=== PATIENT | female | born 2000 | race Caucasian/White ===

== ENCOUNTER 2020-01-24 10:19 | Observation (INO) ==
[2020-01-24] MEDS ORDERED: SODIUM CHLORIDE 0.9% 1000ML 2,000 ML IV ONE (11:05)
[2020-01-24] MEDS ORDERED: ACETAMINOPHEN 1,000 MG/100 ML VIAL IV STA (11:05)
[2020-01-24 11:54] LABS: Basophils # (auto) 0.05 K/uL (0-0.2); Basophils % (auto) 0.5 %; Eosinophils # (auto) 0.16 K/uL (0-0.5); Eosinophils % (auto) 1.6 %; Hematocrit (blood only) 41.9 % (37-47); Hemoglobin 14.2 g/dL (12.0-16.0); Immature Granulocytes # (auto) 0.01 K/uL (0.00-0.02); Immature Granulocytes % (auto) 0.1 %; Lymphocytes # (auto) 2.18 K/uL (1.2-3.4); Lymphocytes % (auto) 21.2 %; Mean Corpuscular Hemoglobin 29.8 pg (25-34); Mean Corpuscular Hgb Conc 33.9 g/dL (32-36); Mean Corpuscular Volume 87.8 fL (80-100); Mean Platelet Volume 9.9 fL (7.4-10.4); Monocytes # (auto) 0.95 K/uL (0.11-0.59); Monocytes % (auto) 9.3 %; Neutrophils # (auto) 6.91 K/uL (1.4-6.5); Neutrophils % (auto) 67.3 %; Platelet Count 285 K/uL (130-400); RDW Coefficient of Variation 12.2 % (11.5-14.5); RDW Standard Deviation 38.9 fL (36.4-46.3); Red Blood Count 4.77 M/uL (4.2-5.4); White Blood Count 10.26 K/uL (4.8-10.8)
[2020-01-24] MEDS ORDERED: ONDANSETRON INJ 2 MG/ML 2 ML VIAL ONE ×2 (12:08→15:10)
[2020-01-24 12:15] LABS: Albumin Level 3.6 gm/dl (3.4-5.0); BUN Creatinine Ratio 9.4 (10-20); Calcium 9.2 mg/dl (8.5-10.1); Creatinine Clr Calc Pharmacy 131.7 ml/min; Est GFR (African American) 112.7; Est GFR (Non-African American) 97.3; Potassium 4.1 mmol/L (3.5-5.1)
[2020-01-24 12:17] LABS: Albumin Globulin Ratio 0.8 (0.9-2); Bilirubin,Total 0.3 mg/dl (0.2-1); Globulin 4.3 gm/dl (2.5-4.0); Total Protein 7.9 gm/dl (6.4-8.2)
[2020-01-24 12:19] LABS: Pregnancy Test, Serum Negative (Negative)
[2020-01-24 12:22] LABS: Appearance Urine Clear (Clear); Bacteria Urine Automated 1+ (Negative); Bilirubin Urine Negative (Negative); Blood Urine Negative (Negative); Cast Urine Automated 0 /lpf (0-5); Color Urine Yellow; Epithelial Cell Urine Auto >30 /lpf (0-5); Glucose Urine UA Negative (Negative); Ketones Urine Negative (Negative); Leukocyte Esterase Urine 2+ (Negative); Nitrite Urine Negative (Negative); Protein Urine Negative (Negative); RBC Urine Automated 0-4 /hpf (0-4); Specific Gravity Urine 1.007 (1.000-1.030); Urobilinogen Urine Negative (Negative)
[2020-01-24] MEDS ORDERED: IOVERSOL 100ml IV ONE (12:33)
--- NOTE | 2020-01-24 12:51 | CT Scan Report ---
CT SCAN OF THE ABDOMEN AND PELVIS WITH IV CONTRAST CLINICAL HISTORY: Right lower quadrant abdominal pain. COMPARISON STUDY: Abdominal radiographs dated 12/26/2018. TECHNIQUE: Following the IV administration of 93 cc of Optiray 320, CT scan of the abdomen and pelvi s is performed from the lung bases to the proximal femora. Images are reviewed in the axial, sagittal , and coronal planes. IV contrast was administered without complication. A dose lowering technique wa s utilized adhering to the principles of ALARA. CT DOSE: 865.90 mGy.cm FINDINGS: Lung bases: The heart is normal in size and without pericardial effusion. The lung bases are clear. Liver: The contrast-enhanced liver is normal in size, contour, and attenuation. There is no intrahepa tic biliary ductal dilatation. The hepatic veins and portal veins are patent. Gallbladder: Unremarkable. Spleen: Normal in size and attenuation. Pancreas: Unremarkable. Adrenal glands: Unremarkable. Kidneys: The contrast enhanced kidneys are normal in size and without hydronephrosis. The kidneys enh ance symmetrically. Abdominal vasculature: The abdominal aorta is normal in course and caliber. Bowel: There is no bowel obstruction. The appendix is distended and fluid-filled, measuring up to 10 mm in diameter as seen on image #287. The appendiceal wall is thickened and there is trace appendicea l inflammation. Findings are consistent with acute appendicitis. No organized fluid collection is see n to suggest abscess. Peritoneum: There is no intraperitoneal free air or abdominal ascites. There is a small fat-containin g umbilical hernia. A naval piercing is noted. Lymphadenopathy: None. Pelvic viscera: The bladder, uterus, and adnexa are normal as visualized noting bilateral ovarian fol licles. A small volume of free fluid is seen in the cul-de-sac. Skeletal structures: No lytic or blastic lesions are seen. IMPRESSION: 1. Findings are consistent with acute appendicitis. 2. There is no evidence of abscess or perforation. 3. A small volume of nonspecific free fluid is seen in the cul-de-sac. 4. Additional findings as above. ACT 112: Negative or not required by law. Electronically signed by: Ten Peralta M.D. 01/24/2020 12:50 PM
--- NOTE | 2020-01-24 14:07 | Emergency Department Note ---
Impression & Plan Appendicitis, Abdominal pain, RLQ, Nausea ED Provider Note NAME: DONELL LANTIGUA AGE: 19 SEX: F ARRIVES VIA: Walk-In INFORMANT: Patient ED PROVIDER(S): Prateek Farr MD CHIEF COMPLAINT: Abdominal pain, fever. PLAN: Disposition: Admit MEDICAL DECISION MAKING: The patient is a pleasant 19 y/o, previously healthy who presents to the emergency department with right lower quadrant pain and fever that evolved since Friday with generalized abdominal pain and nausea, vomiting, and diarrhea. She denies cough, chest pain, sob, urinary sx. Denies known exposures to Covid19. On arrival the patient is uncomfortable NAD, Febrile to 38.8 and otherwise VSS. She appears clinically dry. She exhibits moderate tenderness over Mcburney's point. No guarding or rebound. WBC, H/H, platelets wnl. Chemistry without acidosis. LFTs and electrolytes unremarkable. Hcg negative. UA with epitheleal cells. Ct abd/pelvis demonstrates appendicitis with fluid filled, distended appendix measuring 10 mm with periappendiceal inflammation. No abscess or perforation. Case was discussed with Dr. Gimenez, general surgery director of flight operations who will evaluate the patient for O R/admission. Findings and plan reviewed with the patient and she was agreeable. Cefoxitin ordered. Triage Nursing notes reviewed and agree them. [Prior medical records reviewed] [] Vital Signs: reviewed and remarkable for [no significant abnormalities] Differential diagnosis: Appendicitis, ovarian cyst, ovarian torsion, ectopic , TOA, PID, infections, diverticulitis, UTI, obstruction, mesenteric ischemia, aortic pathology, inflammatory bowel disease, renal colic, PUD, pancreatitis, biliary pathology, hernia, volvulus, constipation, as well as other pathologies. ER treatment provided: See below. Diagnostics interpreted by me: Cardiac Monitoring: An order for continuous cardiac monitoring was placed and demonstrated NSR, 89 bpm, no ectopy. Laboratory studies: [See below] [] Imaging studies: CT SCAN OF THE ABDOMEN AND PELVIS WITH IV CONTRAST CLINICAL HISTORY: Right lower quadrant abdominal pain. COMPARISON STUDY: Abdominal radiographs dated 12/26/2018. TECHNIQUE: Following the IV administration of 93 cc of Optiray 320, CT scan of the abdomen and pelvis is performed from the lung bases to the proximal femora. Images are reviewed in the axial, sagittal, and coronal planes. IV contrast was administered without complication. A dose lowering technique was utilized adhering to the principles of ALARA. CT DOSE: 865.90 mGy.cm FINDINGS: Lung bases: The heart is normal in size and without pericardial effusion. The lung bases are clear. Liver: The contrast-enhanced liver is normal in size, contour, and attenuation. There is no intrahepatic biliary ductal dilatation. The hepatic veins and portal veins are patent. Gallbladder: Unremarkable. Spleen: Normal in size and attenuation. Pancreas: Unremarkable. Adrenal glands: Unremarkable. Kidneys: The contrast enhanced kidneys are normal in size and without hydronephrosis. The kidneys enhance symmetrically. Abdominal vasculature: The abdominal aorta is normal in course and caliber. Bowel: There is no bowel obstruction. The appendix is distended and fluid- filled, measuring up to 10 mm in diameter as seen on image #287. The appendiceal wall is thickened and there is trace appendiceal inflammation. Findings are consistent with acute appendicitis. No organized fluid collection is seen to suggest abscess. Peritoneum: There is no intraperitoneal free air or abdominal ascites. There is a small fat-containing umbilical hernia. A naval piercing is noted. Lymphadenopathy: None. Pelvic viscera: The bladder, uterus, and adnexa are normal as visualized noting bilateral ovarian follicles. A small volume of free fluid is seen in the cul-de-sac. Skeletal structures: No lytic or blastic lesions are seen. IMPRESSION: 1. Findings are consistent with acute appendicitis. 2. There is no evidence of abscess or perforation. 3. A small volume of nonspecific free fluid is seen in the cul-de-sac. 4. Additional findings as above. Consultation(s): Dr. Gimenez, General surgery on-call. HPI: The patient is a pleasant 19 y/o, previously healthy who presents to the emergency department with right lower quadrant pain and fever that evolved since Friday with generalized abdominal pain and nausea, vomiting, and diarrhea. She denies cough, chest pain, sob, urinary sx. Denies known exposures to Covid19. ROS: See above HPI for pertinent positives & negatives. A total of [10] systems reviewed and were otherwise negative. PAST MEDICAL HISTORY:[See Below] PAST SURGICAL HISTORY:[See Below] FAMILY HISTORY:[See Below] SOCIAL HISTORY:[See Below] HOME MEDICATIONS:[See Below] ALLERGIES:[See Below] VITALS:[See Below] PHYSICAL EXAMINATION: GENERAL: Awake, alert, uncomfortable-appearing, in no distress HENT: Normocephalic, atraumatic. Oropharynx with dry mucous membranes and otherwise unremarkable. EYES: Normal conjunctiva. Sclera non-icteric. NECK: Supple. No nuchal rigidity. FROM. No JVD. RESPIRATORY: Clear to auscultation. CARDIAC: Regular rate, normal rhythm. Extremities warm and well perfused. Pulses equal. ABDOMEN: Soft, non-distended. Moderate tenderness to palpation over Mcburney's point. No rebound or guarding. No masses. RECTAL: Deferred. MUSCULOSKELETAL: Chest examination reveals no tenderness. The back is symmetrical on inspection without obvious abnormality. There is no CVA tender ness to palpation. No joint edema. LOWER EXTREMITIES: Calves are equal size bilaterally and non-tender. No edema. No discoloration. NEURO: Normal sensorium. No sensory or motor deficits noted. SKIN: No rash or jaundice noted. Prateek Farr MD Past Med/Surg History Medical History Miscarriage No pertinent past medical history Obesity Surgical History No pertinent past surgical history Family History Mother Ovarian cancer Denies family history of Breast cancer Colorectal cancer Uterine cancer Social History Smoking Status: Never smoker Hx Alcohol Use: No Hx Substance Use: No Preferred Language: Malawian Communication Ability: Effective [employer] Machine Bluer Required: No Beliefs That Will Affect Care: None Current Living Situation: Significant Other Current Living Situation Comment: Lives with fiance. Other Information That Helps Us Care for You: No Feels Safe at Home: Yes Safety Concerns: Feels Safe At This Time Assistive Devices: None Allergies Allergies Allergy/AdvReac Type Severity Reaction Status Date / Time No Known Allergies Allergy Verified 01/24/20 11:34 Home Meds Home Medications Medication Instructions Recorded Confirmed No Known Home Medications 12/26/18 01/24/20 Results & Data (ED) Vital Signs Vital Signs - 24 hr 01/24/20 10:24 01/24/20 11:24 01/24/20 11:30 Temperature 38.8 C H Temperature Source Oral Pulse Rate 108 H 100 H 85 Pulse Rate [Apical] Pulse Rhythm [Apical] Respiratory Rate 16 24 16 Respiratory Effort / Characteristics Respiratory Depth Respiratory Pattern Blood Pressure 132/73 Blood Pressure [Left Arm] Blood Pressure Mean 92 Blood Pressure Mean [Left Arm] Blood Pressure Position [Left Arm] Pulse Oximetry 93 Oxygen Delivery Method Room Air Sepsis Recent Fever Within 48 Hours No Sepsis New/Unexplained Change in Mental Status N/A Sepsis Action Taken by Nursing No Action Required 01/24/20 12:06 01/24/20 12:42 01/24/20 13:00 Temperature Temperature Source Pulse Rate 94 H 101 H 96 H Pulse Rate [Apical] Pulse Rhythm [Apical] Respiratory Rate 16 20 18 Respiratory Effort / Characteristics Respiratory Depth Respiratory Pattern Blood Pressure Blood Pressure [Left Arm] Blood Pressure Mean Blood Pressure Mean [Left Arm] Blood Pressure Position [Left Arm] Pulse Oximetry Oxygen Delivery Method Sepsis Recent Fever Within 48 Hours Sepsis New/Unexplained Change in Mental Status Sepsis Action Taken by Nursing 01/24/20 13:30 01/24/20 14:29 01/24/20 14:31 Temperature Temperature Source Pulse Rate 82 98 H 106 H Pulse Rate [Apical] Pulse Rhythm [Apical] Respiratory Rate 15 18 22 Respiratory Effort / Characteristics Respiratory Depth Respiratory Pattern Blood Pressure 141/88 H Blood Pressure [Left Arm] Blood Pressure Mean 108 Blood Pressure Mean [Left Arm] Blood Pressure Position [Left Arm] Pulse Oximetry Oxygen Delivery Method Sepsis Recent Fever Within 48 Hours Sepsis New/Unexplained Change in Mental Status Sepsis Action Taken by Nursing 01/24/20 15:45 01/24/20 15:47 01/24/20 17:35 Temperature 37.5 C 37.5 C Temperature Source Oral Temporal Artery Scan Pulse Rate 106 H Pulse Rate [Apical] 109 H 81 Pulse Rhythm [Apical] Regular Regular Respiratory Rate 20 22 20 Respiratory Effort / Characteristics Non-Labored Spontaneous Non-Labored Spontaneous Respiratory Depth Normal Normal Respiratory Pattern Regular Regular Blood Pressure 141/88 H Blood Pressure [Left Arm] 155/109 H 131/93 Blood Pressure Mean Blood Pressure Mean [Left Arm] 124 105 Blood Pressure Position [Left Arm] Semi-fowlers Lying Pulse Oximetry 98 93 95 Oxygen Delivery Method Room Air Room Air Room Air Sepsis Recent Fever Within 48 Hours Sepsis New/Unexplained Change in Mental Status Sepsis Action Taken by Nursing Laboratory Data Attestation: I reviewed the patient's lab results. Result diagrams: 01/24/20 11:33 01/24/20 11:33 Lab Results 01/24/20 01/24/20 01/24/20 Range/Units 11:33 11:33 11:33 WBC 10.26 (4.8-10.8) K/uL RBC 4.77 (4.2-5.4) M/uL Hgb 14.2 (12.0-16.0) g/dL Hct 41.9 (37-47) % MCV 87.8 (80-100) fL MCH 29.8 (25-34) pg MCHC 33.9 (32-36) g/dL RDW Std Deviation 38.9 (36.4-46.3) fL RDW Coeff of Andreas 12.2 (11.5-14.5) % Plt Count 285 (130-400) K/uL MPV 9.9 (7.4-10.4) fL Immature Gran % (Auto) 0.1 % Neut % (Auto) 67.3 % Lymph % (Auto) 21.2 % Webster % (Auto) 9.3 % Eos % (Auto) 1.6 % Baso % (Auto) 0.5 % Neut # (Auto) 6.91 H (1.4-6.5) K/uL Lymph # (Auto) 2.18 (1.2-3.4) K/uL Webster # (Auto) 0.95 H (0.11-0.59) K/uL Eos # (Auto) 0.16 (0-0.5) K/uL Baso # (Auto) 0.05 (0-0.2) K/uL Immature Gran # (Auto) 0.01 (0.00-0.02) K/uL Sodium 141 (136-145) mmol/L Potassium 4.1 (3.5-5.1) mmol/L Chloride 108 H (98-107) mmol/L Carbon Dioxide 27 (21-32) mmol/L Anion Gap 6.0 (3-11) BUN 8 (7-18) mg/dl Creatinine 0.86 (0.6-1.2) mg/dl Est Cr Clr Drug Dosing 131.7 ml/min Est GFR ( Amer) 112.7 Est GFR (Non-Af Amer) 97.3 BUN/Creatinine Ratio 9.4 L (10-20) Glucose 109 H (70-99) mg/dl Calcium 9.2 (8.5-10.1) mg/dl Total Bilirubin 0.3 (0.2-1) mg/dl AST 17 (15-37) U/L ALT 29 (12-78) U/L Alkaline Phosphatase 88 (45-117) U/L Total Protein 7.9 (6.4-8.2) gm/dl Albumin 3.6 (3.4-5.0) gm/dl Globulin 4.3 H (2.5-4.0) gm/dl Albumin/Globulin Ratio 0.8 L (0.9-2) Lipase 119 (73-393) U/L HCG, Qual Negative (Negative) Urine Color Urine Appearance (Clear) Urine pH (4.5-7.5) Ur Specific [place] (1.000-1.030) Urine Protein (Negative) Urine Glucose (UA) (Negative) Urine Ketones (Negative) Urine Blood (Negative) Urine Nitrite (Negative) Urine Bilirubin (Negative) Urine Urobilinogen (Negative) Ur Leukocyte Esterase (Negative) Urine WBC (Auto) (0-5) /hpf Urine RBC (Auto) (0-4) /hpf U Hyaline Cast (Auto) (0-5) /lpf U Epithel Cells (Auto) (0-5) /lpf Urine Bacteria (Auto) (Negative) COVID-19 Eval Order SARS-CoV-2, RNA, NAAT (NEGATIVE) 01/24/20 01/24/20 01/24/20 Range/Units 12:05 15:00 15:00 WBC (4.8-10.8) K/uL RBC (4.2-5.4) M/uL Hgb (12.0-16.0) g/dL Hct (37-47) % MCV (80-100) fL MCH (25-34) pg MCHC (32-36) g/dL RDW Std Deviation (36.4-46.3) fL RDW Coeff of Andreas (11.5-14.5) % Plt Count (130-400) K/uL MPV (7.4-10.4) fL Immature Gran % (Auto) % Neut % (Auto) % Lymph % (Auto) % Webster % (Auto) % Eos % (Auto) % Baso % (Auto) % Neut # (Auto) (1.4-6.5) K/uL Lymph # (Auto) (1.2-3.4) K/uL Webster # (Auto) (0.11-0.59) K/uL Eos # (Auto) (0-0.5) K/uL Baso # (Auto) (0-0.2) K/uL Immature Gran # (Auto) (0.00-0.02) K/uL Sodium (136-145) mmol/L Potassium (3.5-5.1) mmol/L Chloride (98-107) mmol/L Carbon Dioxide (21-32) mmol/L Anion Gap (3-11) BUN (7-18) mg/dl Creatinine (0.6-1.2) mg/dl Est Cr Clr Drug Dosing ml/min Est GFR ( Amer) Est GFR (Non-Af Amer) BUN/Creatinine Ratio (10-20) Glucose (70-99) mg/dl Calcium (8.5-10.1) mg/dl Total Bilirubin (0.2-1) mg/dl AST (15-37) U/L ALT (12-78) U/L Alkaline Phosphatase (45-117) U/L Total Protein (6.4-8.2) gm/dl Albumin (3.4-5.0) gm/dl Globulin (2.5-4.0) gm/dl Albumin/Globulin Ratio (0.9-2) Lipase (73-393) U/L HCG, Qual (Negative) Urine Color Yellow Urine Appearance Clear (Clear) Urine pH 7.0 (4.5-7.5) Ur Specific [place] 1.007 (1.000-1.030) Urine Protein Negative (Negative) Urine Glucose (UA) Negative (Negative) Urine Ketones Negative (Negative) Urine Blood Negative (Negative) Urine Nitrite Negative (Negative) Urine Bilirubin Negative (Negative) Urine Urobilinogen Negative (Negative) Ur Leukocyte Esterase 2+ H (Negative) Urine WBC (Auto) 10-30 H (0-5) /hpf Urine RBC (Auto) 0-4 (0-4) /hpf U Hyaline Cast (Auto) 0 (0-5) /lpf U Epithel Cells (Auto) >30 H (0-5) /lpf Urine Bacteria (Auto) 1+ H (Negative) COVID-19 Eval Order Covid19 [facility] SARS-CoV-2, RNA, NAAT NEGATIVE (NEGATIVE) Administered Medications Dextrose/Sodium Chloride (D5w And 1/2nss) 1,000 mls @ 70 mls/hr IV .[id number] SANA Stop: 02/23/20 19:01 Last Admin: 01/24/20 19:12 Dose: 70 mls/hr Documented by: [id number] Morphine Sulfate (Morphine Sulfate 4 Mg/Ml 1 Ml Carp\Vial) 4 mg IV Q2H PRN PRN Reason: Pain Stop: 02/07/20 14:44 Last Admin: 01/24/20 19:26 Dose: 4 mg Documented by: [id number] Ondansetron HCl (Ondansetron Inj 2 Mg/Ml 2 Ml Vial) 4 mg IV Q6H PRN PRN Reason: nausea Stop: 02/23/20 19:01 Last Admin: 01/24/20 19:44 Dose: 4 mg Documented by: [id number] Discontinued Medications Bupivacaine HCl (Bupivacaine 0.5 % 5 Mg/1 Ml Mpf 30ml Vial) Confirm Administered Dose 30 ml .ROUTE .STK-MED ONE Stop: 01/24/20 16:12 Last Admin: 01/24/20 17:17 Dose: 20 ml Documented by: [id number] Cefazolin Sodium (Cefazolin 250 Mg/Ml 1 Gm Vial) Confirm Administered Dose 1,000 mg .ROUTE .STK-MED ONE Stop: 01/24/20 15:55 Last Admin: 01/24/20 16:35 Dose: 1,000 mg Documented by: [id number] Fentanyl Citrate (Fentanyl Citrate 100 Mcg/2 Ml Vial) 25 mcg IV Q5M PRN PRN Reason: PACU Use Only-Pain Stop: 01/24/20 23:14 Last Admin: 01/24/20 17:59 Dose: 25 mcg Documented by: [id number] Admin: 01/24/20 17:54 Dose: 25 mcg Documented by: [id number] Admin: 01/24/20 17:49 Dose: 25 mcg Documented by: [id number] Admin: 01/24/20 17:44 Dose: 25 mcg Documented by: [id number] Heparin Sodium (Porcine) (Heparin (Porcine) 1000 Unit/Ml 10 Ml (Activities Coordinator Use Only)) Confirm Administered Dose 10,000 units .ROUTE .STK-MED ONE Stop: 01/24/20 15:55 Last Admin: 01/24/20 16:35 Dose: 5,000 units Documented by: [id number] Hydromorphone HCl (Hydromorphone Inj 1 Mg/Ml Syringe) 0.25 mg IV Q5M PRN PRN Reason: PACU Use Only-Pain Stop: 01/24/20 23:14 Last Admin: 01/24/20 18:36 Dose: 0.25 mg Documented by: [id number] Admin: 01/24/20 18:31 Dose: 0.25 mg Documented by: [id number] Admin: 01/24/20 18:26 Dose: 0.25 mg Documented by: [id number] Sodium Chloride (Nss 1000ml) 2,000 mls @ 999 mls/hr IV .Q2H1M ONE Stop: 01/24/20 13:05 Last Infusion: 01/24/20 14:14 Dose: 0 mls/hr Documented by: [id number] Admin: 01/24/20 12:11 Dose: 999 mls/hr Documented by: [id number] Acetaminophen (Ofirmev) 1,000 mg in 100 mls @ 400 mls/hr IV NOW STA Stop: 01/24/20 11:19 Last Infusion: 01/24/20 12:47 Dose: 0 mls/hr Documented by: [id number] Admin: 01/24/20 12:11 Dose: 400 mls/hr Documented by: [id number] Cefoxitin Sodium (Mefoxin) 2,000 mg in 60 mls @ 100 mls/hr IV NOW STA Stop: 01/24/20 14:43 Last Infusion: 01/24/20 16:41 Dose: 0 mls/hr Documented by: [id number] Admin: 01/24/20 16:05 Dose: 100 mls/hr Documented by: [id number] Ioversol (Ioversol 100ml) 93 ml IV ONCE ONE Stop: 01/24/20 12:34 Last Admin: 01/24/20 12:33 Dose: 93 ml Documented by: [id number] Ketorolac Tromethamine (Ketorolac 30 Mg/Ml Vial) Confirm Administered Dose 30 mg .ROUTE .STK-MED ONE Stop: 01/24/20 17:50 Last Admin: 01/24/20 17:49 Dose: 30 mg Documented by: [id number] Ondansetron HCl (Ondansetron Inj 2 Mg/Ml 2 Ml Vial) Confirm Administered Dose 4 mg .ROUTE .STK-MED ONE Stop: 01/24/20 12:09 Last Admin: 01/24/20 12:11 Dose: 4 mg Documented by: [id number] Blood Pressure Blood Pressure Findings: Normal blood pressure Blood Pressure Disposition: further management by hospitalist Discharge Plan Visit Data Chief Complaint: Flank Pain Stated Complaint: RIGHT SIDE PAIN ED Provider: Prateek Farr Discharge Problem: Appendicitis, Abdominal pain, RLQ, Nausea Patient Disposition: Still a Patient Discharge Instructions Interventions: ED Discharge Assessment Last Done: 01/24/20 15:47 Discharge Problem: Appendicitis Qualifiers: Appendicitis type: acute appendicitis Acute appendicitis type: with localized peritonitis Appendicitis gangrene presence: without gangrene Appendicitis perforation presence: without perforation Appendicitis abscess presence: without abscess Qualified Code(s): K35.30 - Acute appendicitis with localized peritonitis, without perforation or gangrene
[2020-01-24] MEDS ORDERED: ONDANSETRON INJ 2 MG/ML 2 ML VIAL IV PRN ×3 (14:45→19:02)
[2020-01-24] MEDS ORDERED: MoRPHine SULFATE 4 MG/ML 1 ML CARP\\VIAL IV PRN ×2 (14:45→19:02)
[2020-01-24] MEDS: cefOXitin 2,000 MG/60 ML BAG IV STA ×2 (14:58→16:05)
--- NOTE | 2020-01-24 15:01 | History & Physical Report ---
Date of Service January 24, 2020 Assessment & Plan (1) Appendicitis: Admission and Anticipated Discharge Date Admission Date: This patient's history physical examination and CT scan of which I viewed the images as well as the report are all consistent with acute appendicitis. I offered her the options of laparoscopic appendectomy and antibiotics. I explained that we would most likely be able to perform the procedure laparoscopically but there is always a chance we would need to convert to an open procedure. I explained the possible complications associated with those procedures. I answered her questions. She has signed a consent form. History of Present Illness Chief Complaint: Abdominal pain Primary Care Provider: Saloni Guzmán MD This is a 19-year-old female presented to the emergency room with a complaint of abdominal pain. The pain began 3 days ago as a dull ache-like sensation. It was however more sharp and severe in the right lower quadrant. The intensity of the pain is increased as the days have progressed. The pain is exacerbated by movement. She had nausea and had multiple episodes of vomiting. She had no hematemesis. Her bowel habits have been normal. She has had no diarrhea. She had no fever at home but had a temperature maximum of 38 8 while here in the [facility] room. She has had an episode of pain like this back in September but only lasted a few days and then resolve spontaneously. She has no dysuria or hematuria. Her menstrual cycles are normal. Allergies Allergy/AdvReac Type Severity Reaction Status Date / Time No Known Allergies Allergy Verified 01/24/20 11:34 Home Medications Home Medications Medication Instructions Recorded Confirmed Type No Known Home Medications 12/26/18 01/24/20 History Past Med/Surg History Medical History (Updated 01/24/20 @ 15:00 by Rocael Gimenez MD) Miscarriage No pertinent past medical history Surgical History No pertinent past surgical history Family History Mother Ovarian cancer Denies family history of Breast cancer Colorectal cancer Uterine cancer Social History Smoking Status: Never smoker Hx Alcohol Use: No Hx Substance Use: No Preferred Language: Upper Sorbian Feels Safe at Home: Yes Review of Systems Review of Systems: All systems reviewed & are unremarkable except as noted in HPI & below Physical Exam Constitutional: no acute distress Neck: trachea midline Respiratory: normal respiratory effort, lungs clear to auscultation Cardiovascular: Rate/Rhythm: regular rate and regular rhythm Gastrointestinal (Abdomen): Inspection/Auscultation: normal bowel sounds; abdomen not distended Percussion/Palpation: + abdomen tender (To moderate palpation in the right lower quadrant) and abdomen soft; no abdominal mass Skin: no rashes, warm and dry no jaundice Lymphatic: no cervical lymphadenopathy Results & Data Results & Data ([facility]) Vital Signs (Past 12 Hours) Vital Signs Temp Pulse Resp BP Pulse Ox 01/24/20 14:31 106 H 22 01/24/20 14:29 98 H 18 141/88 H 01/24/20 13:30 82 15 01/24/20 13:00 96 H 18 01/24/20 12:42 101 H 20 01/24/20 12:06 94 H 16 01/24/20 11:30 85 16 01/24/20 11:24 100 H 24 01/24/20 10:24 38.8 C H 108 H 16 132/73 93 Laboratory Results 01/24/20 01/24/20 01/24/20 Range/Units 12:05 11:33 11:33 WBC (4.8-10.8) K/uL RBC (4.2-5.4) M/uL Hgb (12.0-16.0) g/dL Hct (37-47) % MCV (80-100) fL MCH (25-34) pg MCHC (32-36) g/dL RDW Std Deviation (36.4-46.3) fL RDW Coeff of Andreas (11.5-14.5) % Plt Count (130-400) K/uL MPV (7.4-10.4) fL Immature Gran % (Auto) % Neut % (Auto) % Lymph % (Auto) % Childress % (Auto) % Eos % (Auto) % Baso % (Auto) % Neut # (Auto) (1.4-6.5) K/uL Lymph # (Auto) (1.2-3.4) K/uL Childress # (Auto) (0.11-0.59) K/uL Eos # (Auto) (0-0.5) K/uL Baso # (Auto) (0-0.2) K/uL Immature Gran # (Auto) (0.00-0.02) K/uL Sodium 141 (136-145) mmol/L Potassium 4.1 (3.5-5.1) mmol/L Chloride 108 H (98-107) mmol/L Carbon Dioxide 27 (21-32) mmol/L Anion Gap 6.0 (3-11) BUN 8 (7-18) mg/dl Creatinine 0.86 (0.6-1.2) mg/dl Est Cr Clr Drug Dosing 131.7 ml/min Est GFR ( Amer) 112.7 Est GFR (Non-Af Amer) 97.3 BUN/Creatinine Ratio 9.4 L (10-20) Glucose 109 H (70-99) mg/dl Calcium 9.2 (8.5-10.1) mg/dl Total Bilirubin 0.3 (0.2-1) mg/dl AST 17 (15-37) U/L ALT 29 (12-78) U/L Alkaline Phosphatase 88 (45-117) U/L Total Protein 7.9 (6.4-8.2) gm/dl Albumin 3.6 (3.4-5.0) gm/dl Globulin 4.3 H (2.5-4.0) gm/dl Albumin/Globulin Ratio 0.8 L (0.9-2) Lipase 119 (73-393) U/L HCG, Qual Negative (Negative) Urine Color Yellow Urine Appearance Clear (Clear) Urine pH 7.0 (4.5-7.5) Ur Specific Sylvester 1.007 (1.000-1.030) Urine Protein Negative (Negative) Urine Glucose (UA) Negative (Negative) Urine Ketones Negative (Negative) Urine Blood Negative (Negative) Urine Nitrite Negative (Negative) Urine Bilirubin Negative (Negative) Urine Urobilinogen Negative (Negative) Ur Leukocyte Esterase 2+ H (Negative) Urine WBC (Auto) 10-30 H (0-5) /hpf Urine RBC (Auto) 0-4 (0-4) /hpf U Hyaline Cast (Auto) 0 (0-5) /lpf U Epithel Cells (Auto) >30 H (0-5) /lpf Urine Bacteria (Auto) 1+ H (Negative) 01/24/20 Range/Units 11:33 WBC 10.26 (4.8-10.8) K/uL RBC 4.77 (4.2-5.4) M/uL Hgb 14.2 (12.0-16.0) g/dL Hct 41.9 (37-47) % MCV 87.8 (80-100) fL MCH 29.8 (25-34) pg MCHC 33.9 (32-36) g/dL RDW Std Deviation 38.9 (36.4-46.3) fL RDW Coeff of Andreas 12.2 (11.5-14.5) % Plt Count 285 (130-400) K/uL MPV 9.9 (7.4-10.4) fL Immature Gran % (Auto) 0.1 % Neut % (Auto) 67.3 % Lymph % (Auto) 21.2 % Childress % (Auto) 9.3 % Eos % (Auto) 1.6 % Baso % (Auto) 0.5 % Neut # (Auto) 6.91 H (1.4-6.5) K/uL Lymph # (Auto) 2.18 (1.2-3.4) K/uL Childress # (Auto) 0.95 H (0.11-0.59) K/uL Eos # (Auto) 0.16 (0-0.5) K/uL Baso # (Auto) 0.05 (0-0.2) K/uL Immature Gran # (Auto) 0.01 (0.00-0.02) K/uL Sodium (136-145) mmol/L Potassium (3.5-5.1) mmol/L Chloride (98-107) mmol/L Carbon Dioxide (21-32) mmol/L Anion Gap (3-11) BUN (7-18) mg/dl Creatinine (0.6-1.2) mg/dl Est Cr Clr Drug Dosing ml/min Est GFR ( Amer) Est GFR (Non-Af Amer) BUN/Creatinine Ratio (10-20) Glucose (70-99) mg/dl Calcium (8.5-10.1) mg/dl Total Bilirubin (0.2-1) mg/dl AST (15-37) U/L ALT (12-78) U/L Alkaline Phosphatase (45-117) U/L Total Protein (6.4-8.2) gm/dl Albumin (3.4-5.0) gm/dl Globulin (2.5-4.0) gm/dl Albumin/Globulin Ratio (0.9-2) Lipase (73-393) U/L HCG, Qual (Negative) Urine Color Urine Appearance (Clear) Urine pH (4.5-7.5) Ur Specific Sylvester (1.000-1.030) Urine Protein (Negative) Urine Glucose (UA) (Negative) Urine Ketones (Negative) Urine Blood (Negative) Urine Nitrite (Negative) Urine Bilirubin (Negative) Urine Urobilinogen (Negative) Ur Leukocyte Esterase (Negative) Urine WBC (Auto) (0-5) /hpf Urine RBC (Auto) (0-4) /hpf U Hyaline Cast (Auto) (0-5) /lpf U Epithel Cells (Auto) (0-5) /lpf Urine Bacteria (Auto) (Negative) Diagnostic Findings CT SCAN OF THE ABDOMEN AND PELVIS WITH IV CONTRAST CLINICAL HISTORY: Right lower quadrant abdominal pain. COMPARISON STUDY: Abdominal radiographs dated 12/26/2018. TECHNIQUE: Following the IV administration of 93 cc of Optiray 320, CT scan of the abdomen and pelvis is performed from the lung bases to the proximal femora. Images are reviewed in the axial, sagittal, and coronal planes. IV contrast was administered without complication. A dose lowering technique was utilized adhering to the principles of ALARA. CT DOSE: 865.90 mGy.cm FINDINGS: Lung bases: The heart is normal in size and without pericardial effusion. The lung bases are clear. Liver: The contrast-enhanced liver is normal in size, contour, and attenuation. There is no intrahepatic biliary ductal dilatation. The hepatic veins and portal veins are patent. Gallbladder: Unremarkable. Spleen: Normal in size and attenuation. Pancreas: Unremarkable. Adrenal glands: Unremarkable. Kidneys: The contrast enhanced kidneys are normal in size and without hydronephrosis. The kidneys enhance symmetrically. Abdominal vasculature: The abdominal aorta is normal in course and caliber. Bowel: There is no bowel obstruction. The appendix is distended and fluid- filled, measuring up to 10 mm in diameter as seen on image #287. The appendiceal wall is thickened and there is trace appendiceal inflammation. Findings are consistent with acute appendicitis. No organized fluid collection is seen to suggest abscess. Peritoneum: There is no intraperitoneal free air or abdominal ascites. There is a small fat-containing umbilical hernia. A naval piercing is noted. Lymphadenopathy: None. Pelvic viscera: The bladder, uterus, and adnexa are normal as visualized noting bilateral ovarian follicles. A small volume of free fluid is seen in the cul-de-sac. Skeletal structures: No lytic or blastic lesions are seen. IMPRESSION: 1. Findings are consistent with acute appendicitis. 2. There is no evidence of abscess or perforation. 3. A small volume of nonspecific free fluid is seen in the cul-de-sac. 4. Additional findings as above.
[2020-01-24] MEDS ORDERED: DEXAMETHASONE SOD INJ 4 MG/ML VIAL ONE (15:10)
[2020-01-24] MEDS ORDERED: MIDAZOLAM HCL 1 MG/ML 2ML VIAL ONE (15:10)
[2020-01-24] MEDS ORDERED: NEOSTIGMINE METHYLSULFATE 5 MG/5 ML SYR ONE (15:10)
[2020-01-24] MEDS ORDERED: GLYCOPYRROLATE 0.2 MG/ML VIAL ONE (15:10)
[2020-01-24] MEDS ORDERED: fentaNYL citrate 100 MCG/2 ML VIAL ONE ×2 (15:10→16:41)
[2020-01-24] MEDS ORDERED: ROCURONIUM BROMIDE 10 MG/ML 5 ML VIAL IV ONE (15:10)
[2020-01-24] MEDS ORDERED: LARYING-O-JET KIT (LTA) ONE (15:10)
[2020-01-24] MEDS ORDERED: LIDOCAINE HCL 2% 2 ML VIAL/AMP(20MG/ML) INFIL ONE (15:10)
[2020-01-24] MEDS ORDERED: PROPOFOL IV EMULSION 10 MG/ML 20 ML VIAL IV ONE (15:10)
[2020-01-24] MEDS ORDERED: ATROPINE SULFATE 0.1 MG/ML 10ML SYR IV PRN (15:14)
[2020-01-24] MEDS ORDERED: LABETALOL HCL IV 5 MG/ML 20ML IV PRN (15:14)
[2020-01-24] MEDS ORDERED: ePHEDrine sulfate 50 MG/ML AMP IV PRN (15:14)
[2020-01-24] MEDS ORDERED: MEPERIDINE HCL 25 MG/ML CARP/VIAL IV PRN (15:14)
[2020-01-24] MEDS ORDERED: PHENYLEPHRINE 100MCG/ML 5ML SYR IV PRN (15:14)
[2020-01-24] MEDS ORDERED: CEFAZOLIN 250 MG/ML 1 GM VIAL ONE (15:54)
[2020-01-24] MEDS ORDERED: HEPARIN (PORCINE) 1000 UNIT/ML 10 ML (CATH LAB USE ONLY) ONE (15:54)
--- NOTE | 2020-01-24 15:59 | Anesthesiology Consultation ---
Date of Service January 24, 2020 Covid 19 negative today. No known exposure to Covid 19. Assessment & Plan (1) Encounter for pre-operative examination: Chart Review Chart Review: Acceptable Risk for Surgery and Patient NOT seen in Pre Admission Testing Consults Requested none History Surgery Operation Date: 01/24/20 07:00 Proposed Procedures p Laparoscopic Appendectomy - Rocael Gimenez MD Height/Weight Height: 5 ft 8 in Weight: 104 kg Allergies Allergy/AdvReac Type Severity Reaction Status Date / Time No Known Allergies Allergy Verified 01/24/20 11:34 Medications Home Medications Medication Instructions Recorded Confirmed Last Taken No Known Home Medications 12/26/18 01/24/20 Unknown Past Medical History Medical History Miscarriage No pertinent past medical history Obesity Past Family History Family History Mother Ovarian cancer Denies family history of Breast cancer Colorectal cancer Uterine cancer Past Surgical History Surgical History No pertinent past surgical history Social History Smoking Status: Never smoker Hx Alcohol Use: No Hx Substance Use: No Physical Exam Vital Signs Last Vital Signs Temp 37.5 C 01/24/20 15:45 Pulse 106 H 01/24/20 15:47 Resp 22 01/24/20 15:47 BP 141/88 H 01/24/20 15:47 Pulse Ox 93 01/24/20 15:47 Testing Laboratory Results 01/24/20 11:33 01/24/20 11:33 Urine Color Yellow 01/24/20 12:05 Urine Appearance Clear (Clear) 01/24/20 12:05 Urine pH 7.0 (4.5-7.5) 01/24/20 12:05 Ur Specific Burrton 1.007 (1.000-1.030) 01/24/20 12:05 Urine Protein Negative (Negative) 01/24/20 12:05 Urine Glucose (UA) Negative (Negative) 01/24/20 12:05 Urine Ketones Negative (Negative) 01/24/20 12:05 Urine Nitrite Negative (Negative) 01/24/20 12:05 Ur Leukocyte Esterase 2+ (Negative) H 01/24/20 12:05 Urine WBC (Auto) 10-30 /hpf (0-5) H 01/24/20 12:05 Urine RBC (Auto) 0-4 /hpf (0-4) 01/24/20 12:05 U Hyaline Cast (Auto) 0 /lpf (0-5) 01/24/20 12:05 U Epithel Cells (Auto) >30 /lpf (0-5) H 01/24/20 12:05 Urine Bacteria (Auto) 1+ (Negative) H 01/24/20 12:05
[2020-01-24] MEDS ORDERED: BUPIVACAINE 0.5 % 5 MG/1 ML MPF 30ML VIAL ONE (16:11)
--- NOTE | 2020-01-24 17:33 | Post Operative Brief Note ---
Immediate Post Op Note v1 Date of Surgery January 24, 2020 Pre & Post Diagnosis Operation Date: 01/24/20 07:00 Pre-Op Diagnosis: RIGHT SIDE PAIN Post-Op Diagnosis: APPENDICITIS I identified the patient and participated in the time-out.: Yes Procedure Operation Date: 01/24/20 07:00 Actual Procedures p Laparoscopic Appendectomy(Not Applicable) - Rocael Gimenez MD Surgeon Rocael Gimenez MD Biomathematician None Estimated Blood Loss 10 Findings Consistent with Post-Op Diagnosis
[2020-01-24] MEDS: fentaNYL citrate 100 MCG/2 ML VIAL IV PRN ×4 (17:44→17:59)
[2020-01-24] MEDS ORDERED: KETOROLAC 30 MG/ML VIAL ONE (17:49)
--- NOTE | 2020-01-24 17:51 | Anesthesiology Progress Note ---
Date of Service January 24, 2020 Anesthesia Post Procedure Vital Signs Vital Signs: Temp Pulse Pulse Resp BP BP Pulse Ox 01/24/20 15:47 106 H 22 141/88 H 93 01/24/20 15:45 37.5 C 109 H 20 155/109 H 98 01/24/20 14:31 106 H 22 01/24/20 14:29 98 H 18 141/88 H 01/24/20 13:30 82 15 01/24/20 13:00 96 H 18 01/24/20 12:42 101 H 20 01/24/20 12:06 94 H 16 01/24/20 11:30 85 16 01/24/20 11:24 100 H 24 01/24/20 10:24 38.8 C H 108 H 16 132/73 93 Transfer of Care Handoff Completed per policy Notes Mental Status: alert / awake / arousable Patient Amnestic to Procedure: Yes Nausea / Vomiting: adequately controlled Pain: adequately controlled Airway Patency, RR, SpO2: stable & adequate BP & HR: stable & adequate Hydration State: stable & adequate Anesthetic Complications: no major complications apparent and Pt Satisfied with anesthetic care
[2020-01-24] MEDS: HYDROmorphone INJ 1 MG/ML SYRINGE IV PRN ×3 (18:26→18:36)
[2020-01-24] MEDS ORDERED: OXYCODONE/ACETAMINOPHEN 5mg/325mg TAB PO PRN (19:02)
[2020-01-24] MEDS: D5W AND 1/2NSS 1,000 ML IV SCH (19:12)
--- NOTE | 2020-01-24 21:21 | Operative Report (OR) ---
DATE OF OPERATION: 01/24/2020 PREOPERATIVE DIAGNOSIS: Acute appendicitis. POSTOPERATIVE DIAGNOSIS: Acute appendicitis. PROCEDURE: Laparoscopic appendectomy. SURGEON: Rocael Gimenez MD. FINDINGS: The appendix was encased in surrounding structures including the mesentery of the small bowel and the terminal ileum, the lateral and posterolateral abdominal wall, and the cecum. It was inflamed in its distal two-thirds. The proximal one-third which measured 2-3 cm was normal. The base of the appendix at the cecum and the cecum were normal. The other remainder of the visible bowel appeared normal. There was no evidence of perforation or abscess. The uterus and ovaries appeared normal. TECHNIQUE: The patient was given a general anesthesia and the area was prepped and draped in the usual sterile fashion. Skin and subcutaneous tissue inferior to the umbilicus was anesthetized with 1% Xylocaine with epinephrine. Skin incision was made and was carried down through the subcutaneous tissue to the fascia, which was grasped with 2 Sarah clamps and incised between. The peritoneum was identified, incised and introducer was placed bluntly. The abdomen was then insufflated to a pressure of 15 mmHg with carbon dioxide. The lower midline introducer site was chosen and the skin and subcutaneous tissue were anesthetized with the same local. Skin incision was made, and the introducer was placed under direct vision. I then chose a site for the left lower quadrant introducer. The skin in layers were anesthetized with the same local. Skin incision was made and was placed under direct vision. The adhesions of the terminal ileum to the lateral abdominal wall were taken down. I then worked superiorly and divided adhesions of what then proved to be the appendix and reflected out laterally and divided some of the attachments of the cecum to the lateral abdominal wall and reflected that medially as well. I then was able to identify the base of the appendix. The appendix was coming off the inferior portion of the cecum and then was adherent to the undersurface of the cecum. It required then dissection of further attachments of the appendix away from the lateral abdominal wall in order to identify the base of the appendix. I then had to dissect the mesentery of the small bowel away from the appendix inferiorly, which allowed me to further elevate it. The attachments to the cecum were then taken down. Those were quite flimsy. That allowed me to elevate the appendix and divide the final peritoneal attachments laterally. That allowed me to confidently identify the base of the appendix. I was able to establish a plane between the base of the appendix and the appendix and divided the mesentery of the appendix using the Endo-SHILPI stapler. There was a 1 small vessel on the lateral wall and it was away from the wall of the appendix and clipped. It was divided. The appendix was then elevated, confirming the base of the appendix. The appendix was amputated using the Endo-SHILPI stapler. The appendix was placed into an Endobag and brought out through the left lower quadrant introducer site with ease. Then the introducer was replaced. The right lower quadrant was irrigated. Irrigation was removed. There was some oozing from the mesoappendix staple line and that was clipped. The remainder of the area was irrigated and the irrigation removed. There was no further bleeding. Any irrigation that entered the right upper quadrant or the pelvis was removed. The gas was allowed to escape and introducers were removed. The fascia of the umbilical introducer site was closed with interrupted 0 Vicryl. The skin of all the incisions was closed with 4-0 Monocryl in either an interrupted or running subcuticular fashion. Further local was placed. The skin was cleansed, dried, benzoin placed, Steri-Strips applied. Estimated blood loss was 10 mL Sponge, needle and instrument counts were correct prior to closure. The patient tolerated the surgical procedure without complication and was transferred to recovery. I attest to the content of the Intraoperative Record and any orders documented therein. Any exception s are noted below.
--- NOTE | 2020-01-25 08:20 | Anesthesiology Progress Note ---
Date of Service January 25, 2020 Anesthesia Post Procedure Vital Signs Vital Signs: Temp Pulse Pulse Pulse Resp BP BP 01/25/20 07:47 37.2 C 89 16 116/76 01/25/20 03:27 37.0 C 84 16 114/68 01/24/20 23:08 37.2 C 89 16 130/79 01/24/20 22:07 37.2 C 96 H 18 113/67 01/24/20 21:06 37.2 C 99 H 17 127/76 01/24/20 20:00 36.8 C 101 H 88 16 122/78 01/24/20 19:30 37.1 C 102 H 16 138/78 01/24/20 18:50 101 H 22 126/71 01/24/20 18:45 104 H 24 132/74 01/24/20 18:35 98 H 20 125/80 01/24/20 18:25 88 24 138/88 01/24/20 18:15 37.6 C H 88 21 138/86 01/24/20 18:05 88 24 127/86 01/24/20 17:55 77 19 121/81 01/24/20 17:45 79 20 112/83 01/24/20 17:35 37.5 C 81 20 131/93 01/24/20 15:47 106 H 22 141/88 H 01/24/20 15:45 37.5 C 109 H 20 155/109 H 01/24/20 14:31 106 H 22 01/24/20 14:29 98 H 18 141/88 H 01/24/20 13:30 82 15 01/24/20 13:00 96 H 18 01/24/20 12:42 101 H 20 01/24/20 12:06 94 H 16 01/24/20 11:30 85 16 01/24/20 11:24 100 H 24 01/24/20 10:24 38.8 C H 108 H 16 132/73 Pulse Ox 01/25/20 07:47 94 01/25/20 03:27 97 01/24/20 23:08 92 01/24/20 22:07 97 01/24/20 21:06 95 01/24/20 20:00 96 01/24/20 19:30 98 01/24/20 18:50 99 01/24/20 18:45 99 01/24/20 18:35 100 01/24/20 18:25 100 01/24/20 18:15 100 01/24/20 18:05 100 01/24/20 17:55 97 01/24/20 17:45 95 01/24/20 17:35 95 01/24/20 15:47 93 01/24/20 15:45 98 01/24/20 14:31 01/24/20 14:29 01/24/20 13:30 01/24/20 13:00 01/24/20 12:42 01/24/20 12:06 01/24/20 11:30 01/24/20 11:24 01/24/20 10:24 93 Pain Intensity Abdomen: Pain Intensity: 4 Notes Mental Status: alert / awake / arousable and participated in evaluation Nausea / Vomiting: adequately controlled Pain: adequately controlled Airway Patency, RR, SpO2: stable & adequate BP & HR: stable & adequate Hydration State: stable & adequate Anesthetic Complications: no major complications apparent and Pt Satisfied with anesthetic care
[2020-01-25] MEDS: D5W AND 1/2NSS 1,000 ML IV SCH (09:15)
--- NOTE | 2020-01-25 14:00 | Surgery Progress Note ---
Date of Service January 25, 2020 Assessment & Plan (1) Appendicitis: Postoperative day #1 status post laparoscopic appendectomy Doing well Can discharge to home Discussed postoperative activity restrictions Follow-up in 2 weeks Admission and Anticipated Discharge Date Admission Date: January 24, 2020 Subjective Postoperative day #1 status post laparoscopic appendectomy Patient has abdominal soreness but the preop pain is resolved No nausea or vomiting Tolerating regular diet Ambulated Physical Exam Gastrointestinal (Abdomen): Inspection/Auscultation: normal bowel sounds and + abdominal surgical incision (All are clean, dry and intact); abdomen not dis tended Percussion/Palpation: + abdomen tender (Incisional only) and abdomen soft Results & Data ([facility]) Vital Signs (Past 12 Hours) Vital Signs Temp Pulse Resp BP Pulse Ox 01/25/20 07:47 37.2 C 89 16 116/76 94 01/25/20 03:27 37.0 C 84 16 114/68 97 (1) Appendicitis Acute appendicitis type: with localized peritonitis Appendicitis abscess presence: without abscess Appendicitis gangrene presence: without gangrene Appendicitis perforation presence: without perforation Appendicitis type: acute appendicitis Qualified Code(s): K35.30 - Acute appendicitis with localized peritonitis, without perforation or gangrene
--- NOTE | 2020-01-25 14:02 | Discharge Summary ---
Date of Service January 25, 2020 Admission HPI Per Admitting Provider This is a 19-year-old female presented to the emergency room with a complaint of abdominal pain. The pain began 3 days ago as a dull ache-like sensation. It was however more sharp and severe in the right lower quadrant. The intensity of the pain is increased as the days have progressed. The pain is exacerbated by movement. She had nausea and had multiple episodes of vomiting. She had no hematemesis. Her bowel habits have been normal. She has had no diarrhea. She had no fever at home but had a temperature maximum of 38 8 while here in the emergency room. She has had an episode of pain like this back in September but only lasted a few days and then resolve spontaneously. She has no dysuria or hematuria. Her menstrual cycles are normal. Admission Exam Per Admitting Provider Constitutional: no acute distress Neck: trachea midline Respiratory: normal respiratory effort, lungs clear to auscultation Cardiovascular: Rate/Rhythm: regular rate and regular rhythm Gastrointestinal (Abdomen): Inspection/Auscultation: normal bowel sounds; abdomen not distended Percussion/Palpation: + abdomen tender (To moderate palpation in the right lower quadrant) and abdomen soft; no abdominal mass Skin: no rashes, warm and dry no jaundice Lymphatic: no cervical lymphadenopathy Principal Diagnosis Acute appendicitis Discharge Exam Gastrointestinal (Abdomen): Inspection/Auscultation: normal bowel sounds and + abdominal surgical incision (All are clean, dry and intact); abdomen not distended Percussion/Palpation: + abdomen tender (Incisional only) and abdomen soft Discharge Data Allergies Allergy/AdvReac Type Severity Reaction Status Date / Time No Known Allergies Allergy Verified 01/24/20 11:34 Consultations 01/24/20 14:13 ED Decision to Admit Stat Procedures Performed Operation Date: 01/24/20 07:00 Actual Procedures p Laparoscopic Appendectomy(Not Applicable) - Rocael Gimenez MD Ordered Studies 01/24/20 11:08 CT abd pelvis IV con only Stat Hospital Course (1) Appendicitis: The patient was taken to the operating room where an uncomplicated laparoscopic appendectomy was performed. Findings at the time of the procedure included evidence of appendicitis. The base of the appendix and the cecum were normal. There was no evidence of perforation or abscess. On postoperative day #1 the patient was ambulating and tolerating a regular diet without nausea or vomiting. She had incisional discomfort only. She was ambulating. Total Time Total Time Spent Total Time Spent (In Minutes): 15 Discharge Plan Discharge Items Patient Disposition: Home - Self-Care Reason For Visit: APPENDICITIS Discharge Diagnosis: Appendicitis Activity: As commented below Non-emergency contact: Surgeon Call non-emergency contact if: your temperature is above 101.5, your wound has increased redness and your wound has increased drainage Follow-up/Referrals: Saloni Guzmán MD [Primary Care Provider] - Diet: Regular Addtl Attending Provider Instructions: Post-Surgical ~Discharge Instructions Activity Recommendations: - lifting limitation: (10 pounds for 2 weeks), - exercise/sex/sports limit: (nonstrenuous for 2 weeks), - driving or machine use limit: (none for 1 week), - Shower/bathe limit: (may shower beginning tomorrow) Diet: - Resume previous diet SPECIAL CARE INSTRUCTIONS: - May shower in 24 hours. Let water run over area and pat dry. - Leave steri strips on for one week. - Call the surgeon's office with any questions or concerns - - (ex. temperature higher than 101 degrees F, excessive bleeding or pain). MEDICATIONS: - Resume previous medications unless instructed otherwise by your surgeon. - Ibuprofen 600 mg every 6 hours with food - Percocet 1 every 4 hours, as needed for pain FOLLOW UP VISIT: - If not already scheduled, please call the office to schedule a two week follow-up appointment. Office number Pending Studies at Discharge: Yes Studies:: Pathology Stand-Alone Forms: [facility] [employer], Smoking Cessation Medications and DC Order Prescriptions: New oxycodone-acetaminophen [Percocet] 5-325 mg Tablet 1 tab PO Q4H PRN (Reason: pain) Qty: 5 RF: 0 No Action No Known Home Medications RF: 0 Discharge Orders: Discharge Order (Routine); Ordered 01/25/20 Ordered By: Rocael Gimenez Admission Data Admit Date/Time: 01/24/20 17:37 Attending Provider: Rocael Gimenez Admit Provider: Rocael Gimenez Primary Care Provider: Saloni Guzmán Other Providers: Rocael Gimenez
== END 2020-01-25 15:15 | disposition home or self-care (01) ==
LOC: 3N 10:19 → ED 10:19 → 3N 15:47